=== PATIENT | female | born 1985 | race Two or more races ===

== ENCOUNTER 2018-05-03 23:56 | Emergency (ER) | payer MEDICAID ==
[~2018-05-03] VITALS: Ht 170.2 cm; Wt 76.2 kg
[2018-05-04] MEDS ORDERED: NKM (00:07)
--- NOTE | 2018-05-04 00:09 | NUR ---
ED Nurse Note: Pt arrived ED from home. C/o vaginal bleeding today. Pt states that she had HX of " Ectopic pregnanet" before. Pt is A/O X4. VSS. Waiting for orders.
--- NOTE | 2018-05-04 00:20 | NUR ---
ED Nurse Note: Blood and urine sample collected and sent to Lab.
[2018-05-04 00:52] LABS: EOSINOPHILS % (AUTO) 1.4 % (0.0-3.0); HEMATOCRIT 40.5 % (37.0-47.0); HEMOGLOBIN 13.5 G/DL (12.0-16.0); LYMPHOCYTES % (AUTO) 19.3 % (20.0-45.0); MEAN CORPUSCULAR VOLUME 97 FL (80-99); MONOCYTES % (AUTO) 9.3 % (1.0-10.0); PLATELET COUNT 356 K/UL (150-450); RED BLOOD COUNT 4.17 M/UL (4.20-5.40); RED CELL DISTRIBUTION WIDTH 12.6 % (11.6-14.8); WHITE BLOOD COUNT 7.7 K/UL (4.8-10.8)
[2018-05-04 00:56] LABS: APPEARANCE,URINE CLEAR; BILIRUBIN, URINE NEGATIVE (NEGATIVE); COLOR,URINE PALE YELLOW; GLUCOSE, URINE (UA) NEGATIVE (NEGATIVE); KETONES,URINE NEGATIVE (NEGATIVE); LEUKOCYTE ESTERASE ,URINE NEGATIVE (NEGATIVE); NITRITE,URINE NEGATIVE (NEGATIVE); PH,URINE 7 (4.5-8.0); PROTEIN,URINE NEGATIVE (NEGATIVE); UROBILINOGEN,URINE NORMAL MG/DL (0.0-1.0)
[2018-05-04 01:00] LABS: ANION GAP 10 mmol/L (5-15); BLOOD UREA NITROGEN 18 mg/dL (7-18); CALCIUM 9.4 MG/DL (8.5-10.1); CARBON DIOXIDE 27 MMOL/L (21-32); CHLORIDE 103 MMOL/L (98-107); CREATININE 0.8 MG/DL (0.55-1.30); POTASSIUM 3.8 MMOL/L (3.5-5.1); SODIUM 140 MMOL/L (136-145)
--- NOTE | 2018-05-04 02:27 | Emergency Room Report ---
History of Present Illness General Chief Complaint: Complications Source: Patient Present Illness HPI This is a 32-year-old female who is 2, with history of ruptured ectopic. She presents with chief complaint of pelvic pain and possible ectopic . She is but unknown gestation. She had a normal menstrual period in February but only had one day of bleeding in March. She had 2 positive home test. She saw her SOFTWARE INTEGRATION DEVELOPER yesterday and had blood work done. An ultrasound was done but was non-diagnostic. She was told that she may have an ectopic. She scheduled to see an OB later on today for repeat level testing. She present now because she has increasing bleeding and cramping pain. Pain is to the lower quadrant. No syncope. No nausea no vomiting. Denies any other complaint. She does not know what her level was. Allergies: Coded Allergies: No Known Allergies (Verified Allergy, Mild, 04/16/07) Patient History Past Medical History: see triage record, old chart reviewed Past Surgical History: other Pertinent Family History: none Social History: Denies: smoking Last Menstrual Period: feb Now: Yes - yes : 2 Para: 0 Immunizations: other Reviewed Nursing Documentation: PMH: Agreed; PSxH: Agreed Nursing Documentation-PMH Past Medical History: No History, Except For Review of Systems Eye: Denies: eye pain, blurred vision ENT: Denies: ear pain, nose congestion, throat swelling Respiratory: Denies: cough, shortness of breath Cardiovascular: Denies: chest pain, palpitations Gastrointestinal: Denies: abdominal pain, diarrhea, nausea, vomiting Genitourinary: Reports: vag bleed/dc Musculoskeletal: Denies: back pain, joint pain Skin: Denies: rash Neurological: Denies: headache, numbness Endocrine: Denies: increased thirst, increased urine Hematologic/Lymphatic: Denies: easy bruising All Other Systems: negative except mentioned in HPI Physical Exam Vital Signs Date Time Temp Pulse Resp B/P (MAP) Pulse Ox O2 Delivery O2 Flow Rate FiO2 05/04/18 00:00 98.2 75 16 117/80 97 Room Air vitals normal Sp02 EP Interpretation: reviewed, normal General Appearance: well appearing, no apparent distress, alert Head: normocephalic, atraumatic Eyes: bilateral eye PERRL, bilateral eye EOMI ENT: hearing grossly normal, normal pharynx Neck: full range of motion, supple, no meningismus Respiratory: chest non-tender, lungs clear, normal breath sounds Cardiovascular #1: regular rate, rhythm, no murmur Gastrointestinal: normal bowel sounds, no mass, no organomegaly, no bruit, non- distended, tenderness - Mild lower quadrant tenderness Musculoskeletal: back normal, gait/station normal, normal range of motion Psychiatric: mood/affect normal Skin: warm/dry Medical Decision Making Diagnostic Impression: Primary Impression: Ectopic of ovary Qualified Codes: O00.201 - Right ovarian without intrauterine ER Course Patient presents with pelvic pain. Findings concerning for ectopic . I discussed the case with her OB-[employer] INS[employer] CLAIM EXAMINER Dr. Zelaya. Phone #[phone]. He agree to give patient methotrexate since its early and ectopic is very small and early. He will follow-up with her after methotrexate immunization. Patient has an appointment today. Lab Results Impression labs unremarkable. Last Vital Signs Date Time Temp Pulse Resp B/P (MAP) Pulse Ox O2 Delivery O2 Flow Rate FiO2 05/04/18 00:00 98.2 75 16 117/80 97 Room Air Status: improved Disposition: HOME, SELF-CARE Condition: Stable Scripts Ibuprofen* (MOTRIN*) 600 Mg Tablet 600 MG ORAL THREE TIMES A DAY, #30 TAB 0 Refills Prov: Esa Yancey MD 05/04/18 Referrals: NON PHYSICIAN (PCP) Additional Instructions: Follow-up with your SOFTWARE INTEGRATION DEVELOPER later on today. Bring the ultrasound report and labs with you. Return if worse. Esa Yancey MD May 04, 2018 02:27
[2018-05-04] MEDS ORDERED: Methotrexate Sodium 25mg/ml 10ML vial IM ONE (03:00)
--- NOTE | 2018-05-04 03:05 | NUR ---
ED Nurse Note: Waiting for meds to be given, Not avaiable in [facility]. 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
[2018-05-04] MEDS ORDERED: IBUPROFEN600 MG ORAL (05:19)
[2018-05-04 05:27] VITALS: BP 115/82
--- NOTE | 2018-05-04 05:27 | NUR ---
ER DISCHARGE NOTE: Patient is cleared to be discharged per Dr. Yancey. Pt is A/O x4 on room air with stable vital signs. Pt was given dc and prescription instructions and verbalize understanding. Pt's ID band and iv site removed without complications. Pt is able to ambulate with steady gait and took all belongings.
--- NOTE | 2018-05-04 12:53 | Diagnostic Imaging Report ---
Indication: Positive test, pelvic bleeding Technique: Transabdominal and transvaginal images of the pelvis. Doppler interrogation of the bilateral ovaries Comparison: none Findings: Uterus measures 7.3 cm in length by 3.5 cm AP. No intrauterine demonstrated. Endometrium measures 3 mm thick. No myometrial abnormality. Right ovary measures 1.7 cm in length, demonstrates normal blood flow. Left ovary measures 2.5 cm in length. In the right adnexa, there is questionably an ill-defined 3.7 x 3 cm mass. This does not demonstrate a gestational sac, although some ill-defined fluid is seen centrally within it. No free cul-de-sac fluid. Impression: No intrauterine demonstrated Questionable 3.7 x 3 cm mass in the right adnexa, not well imaged. Could represent an ectopic . Correlate with clinical findings. This agrees with the preliminary interpretation provided overnight by [facility] teleradiology service.. Critical value findings were discussed by [facility] radiologist with the referring physician [id number]
== END 2018-05-04 05:27 | disposition home or self-care (01) ==
LOC: EMR 05-04 00:20
DX: O00.201 Right ovarian pregnancy without intrauterine pregnancy (principal); F17.200 Nicotine dependence, unspecified, uncomplicated
CPT/HCPCS: 36415; 76801; 80048; 81003; 84702; 85025; 86850; 86900; 86901; 96360; 96372; 99284; J9260